=== PATIENT | female | born 1960 | race Caucasian/White ===

== ENCOUNTER 2017-06-29 07:09 | Day surgery (SDC) | payer OTHER ==
[~2017-06-29] VITALS: Ht 162.6 cm; Wt 80.4 kg
[~2017-06-29 07:09] MED LIST: AMIT25 PO; AMIT50 PO; AMOCLA875 PO; AZIT250 PO; Bentyl20 MG; DOXY100 PO; FAMO20 PO; HYDACE5 PO; HYDR1TAB94 PO; K-Dur 20 meq T20 MEQ PO; K-Dur20 MEQ PO; LORA1 PO; METO10 PO; METO5A PO; Norco 5-325 Ta1 EACH PO; OMEPRAZOLE MAGN20 MG PO; ONDA4ODT PO; OXYACE5T PO; Omeprazole20 M1 PO; POTA8 PO; POTCHL20ER PO; PROC10 PO; PSEU120ER PO; RXCLIN PO; Sudafed 12 Hou120 MG PO; TRAZ50 PO; Zofran Odt4 MG SL; Zofran Odt8 MG SL
[2017-09-22] MEDS ORDERED: PROM25 PO (13:10)
[2017-09-22] MEDS ORDERED: METR500 PO (13:10)
[2017-09-22] MEDS ORDERED: CIPR500 PO (13:11)
[2017-09-22] MEDS ORDERED: Omeprazole20 M1 PO (13:11)
[2017-09-22] MEDS ORDERED: TYLECOD3 PO (13:12)
[2017-09-22] MEDS ORDERED: BUDE6HFA INH (13:14)
[2017-09-22] MEDS ORDERED: SPIRIVA RESPIMAT4 G1 INH (13:14)
[2017-09-22] MEDS ORDERED: ONDA4 PO (13:15)
[2017-09-22] MEDS ORDERED: PROM25 PR (14:30)
[2017-09-22] MEDS ORDERED: HYDR1TAB94 PO (14:51)
[2018-03-02] MEDS ORDERED: AMIT75 PO (15:13)
[2018-03-02] MEDS ORDERED: Protonix40 MG PO (16:43)
[2018-03-02] MEDS ORDERED: CEPH500 PO (16:43)
[2018-03-02] MEDS ORDERED: MAALOX ADVANCE1 EACH PO (16:43)
== END 2017-06-29 09:06 | disposition home or self-care (01) ==
LOC: ORSCSDS 07:09
PROVIDERS: Internal Medicine Gastroenterology
PROC: 0DJD8ZZ Inspection of Lower Intestinal Tract, Via Natural or Artificial Opening Endoscopic (ICD-10-PCS; principal; 2017-06-29 08:30)
DX: K21.9 Gastro-esophageal reflux disease without esophagitis (principal); K57.30 Diverticulosis of large intestine without perforation or abscess without bleeding; K64.8 Other hemorrhoids; R10.9 Unspecified abdominal pain; R11.2 Nausea with vomiting, unspecified; Z86.010 Personal history of colon polyps; Z87.891 Personal history of nicotine dependence; Z79.899 Other long term (current) drug therapy
CPT/HCPCS: J0330; J1980; J2405; J7120

== ENCOUNTER → 2017-09-19 | Outpatient (CLI) | payer OTHER ==
[~2017-09-19] MED LIST changes: +BUDE6HFA INH; +CIPR500 PO; +METR500 PO; +ONDA4 PO; +PROM25 PO; +PROM25 PR; +SPIRIVA RESPIMAT4 G1 INH; +TYLECOD3 PO
[2017-09-19 15:42] LABS: BASOPHILS ABSOLUTE AUTO 0.02 K/mm3 (0.00-0.23); BASOPHILS PERCENT AUTO 0 % (0-2); EOSINOPHILS ABSOLUTE AUTO 0.02 K/mm3 (0.00-0.68); EOSINOPHILS PERCENT AUTO 0 % (0-6); Hematocrit 41.6 % (33.0-51.0); Hemoglobin 14.3 g/dL (11.5-16.0); IMMATURE GRAN ABSOLUTE AUTO 0.06 K/mm3 (0.00-0.10); IMMATURE GRAN PERCENT AUTO 0 % (0-1); LYMPHOCYTES ABSOLUTE AUTO 1.67 K/mm3 (0.84-5.20); LYMPHOCYTES PERCENT AUTO 10 % (21-46); MONOCYTES ABSOLUTE AUTO 0.71 K/mm3 (0.16-1.47); MONOCYTES PERCENT AUTO 4 % (4-13); Mean Corpuscular HGB 28.4 pg (26.0-34.0); Mean Corpuscular HGB Conc 34.4 g/dL (31.5-36.5); Mean Corpuscular Volume 83 fL (80-100); Mean Platelet Volume 8.8 fL (9.1-12.4); NEUTROPHILS ABSOLUTE AUTO 13.61 K/mm3 (1.96-9.15); NEUTROPHILS PERCENT AUTO 85 % (41-73); Platelet Count 363 K/mm3 (150-400); RDW Coefficient Variation 13.8 % (11.7-14.2); RDW Standard Deviation 40.9 fL (35.1-46.3); Red Blood Cell Count 5.03 M/mm3 (3.80-5.20); White Blood Cell Count 16.09 K/mm3 (4.00-11.30)
[2017-09-19 15:54] LABS: Albumin, Blood 4.4 g/dL (3.4-5.0); Albumin/Globulin Ratio 1.1 (0.8-1.8); Bilirubin, Total 0.4 mg/dL (0.1-1.0); Bun/Creatinine Ratio 7.8 (12.0-20.0); Calcium, Blood 9.8 mg/dL (8.5-10.1); Creatinine, Blood 1.53 mg/dL (0.40-1.00); Potassium, Blood 3.8 mmol/L (3.5-5.5); Total Protein, Blood 8.4 g/dL (6.4-8.2)
== END ==
LOC: LAB SHORT 15:38 → LAB EV 15:38
PROVIDERS: Physician Assistant Medical
DX: R10.11 Right upper quadrant pain (principal)
CPT/HCPCS: 80053; 83690; 85025

== ENCOUNTER 2018-08-13 14:20 | Observation (INO) | payer OTHER ==
[~2018-08-13] VITALS: Ht 162.6 cm; Wt 76.4 kg
[~2018-08-13 14:20] MED LIST changes: +AMIT75 PO; +CEPH500 PO; +MAALOX ADVANCE1 EACH PO; +Protonix40 MG PO
[2018-08-13 21:19] LABS: Source, Urine Voided
[2018-08-13 21:23] LABS: Appearance, Urine Clear (Clear); Bilirubin, Urine Neg (Neg); Blood, Urine 4+ (Neg); Color, Urine Yellow (P-Yellow); Glucose Qualitative, Urine Neg (Neg); Ketones, Urine 2+ (Neg); Leukocyte Esterase, Urine Neg (Neg); Nitrite, Urine Neg (Neg); Protein, Urine 1+ (Neg); Urobilinogen, Urine NORM (Normal); pH, Urine 6.5 (5.0-8.0)
[2018-08-13 21:45] LABS: Bacteria Few /hpf; Squamous Epithelial Cells Not Seen /hpf (Few); White Blood Cells, Urine Rare /hpf (0-5)
[2018-08-14 06:21] LABS: Hematocrit 36.6 % (33.0-51.0); Hemoglobin 12.2 g/dL (11.5-16.0); Mean Corpuscular HGB 28.8 pg (26.0-34.0); Mean Corpuscular HGB Conc 33.3 g/dL (31.5-36.5); Mean Platelet Volume 9.6 fL (9.1-12.4); Platelet Count 292 K/mm3 (150-400); RDW Coefficient Variation 13.9 % (11.7-14.2); RDW Standard Deviation 43.9 fL (35.1-46.3); Red Blood Cell Count 4.23 M/mm3 (3.80-5.20); White Blood Cell Count 12.99 K/mm3 (4.00-11.30)
[2018-08-14 06:22] LABS: Mean Corpuscular Volume 87 fL (80-100)
[2018-08-14 06:37] LABS: Bun/Creatinine Ratio 17.5 (12.0-20.0); Calcium, Blood 8.2 mg/dL (8.5-10.1); Creatinine, Blood 1.14 mg/dL (0.40-1.00); Potassium, Blood 3.5 mmol/L (3.5-5.5)
[2018-08-14 12:26] LABS: BASOPHILS ABSOLUTE AUTO 0.03 K/mm3 (0.00-0.23); BASOPHILS PERCENT AUTO 0 % (0-2); EOSINOPHILS ABSOLUTE AUTO 0.01 K/mm3 (0.00-0.68); EOSINOPHILS PERCENT AUTO 0 % (0-6); Hematocrit 35.5 % (33.0-51.0); Hemoglobin 11.7 g/dL (11.5-16.0); IMMATURE GRAN ABSOLUTE AUTO 0.04 K/mm3 (0.00-0.10); IMMATURE GRAN PERCENT AUTO 0 % (0-1); LYMPHOCYTES ABSOLUTE AUTO 2.34 K/mm3 (0.84-5.20); LYMPHOCYTES PERCENT AUTO 20 % (21-46); MONOCYTES ABSOLUTE AUTO 0.66 K/mm3 (0.16-1.47); MONOCYTES PERCENT AUTO 6 % (4-13); Mean Corpuscular HGB 29.5 pg (26.0-34.0); Mean Platelet Volume 9.5 fL (9.1-12.4); NEUTROPHILS ABSOLUTE AUTO 8.76 K/mm3 (1.96-9.15); NEUTROPHILS PERCENT AUTO 74 % (41-73); Platelet Count 246 K/mm3 (150-400); RDW Coefficient Variation 13.7 % (11.7-14.2); RDW Standard Deviation 45.2 fL (35.1-46.3); Red Blood Cell Count 3.96 M/mm3 (3.80-5.20); White Blood Cell Count 11.84 K/mm3 (4.00-11.30)
[2018-08-14 12:29] LABS: Mean Corpuscular Volume 90 fL (80-100)
[2018-08-14 12:44] LABS: Bun/Creatinine Ratio 17.4 (12.0-20.0); Calcium, Blood 8.1 mg/dL (8.5-10.1); Creatinine, Blood 1.09 mg/dL (0.40-1.00); Potassium, Blood 3.5 mmol/L (3.5-5.5)
--- NOTE | 2018-08-14 18:17 | NUR ---
SUMMARY PT HAS DONE WELL SINCE ADMISSION TO THE FLOOR. VSS, MINIMAL PAIN. PT IS INDEPENDENT IN ROOM, ON ROOM AIR. IN TO ASSESS PT PER CONSULT ORDERS FROM . TEGADERM DRSG WAS REMOVED BY . NEW TEGADERM PLACED. ROMEO REMAIN INTACT. BRUISING NOTED. WCTM AND REPORT TO NOC RN. CALL LIGHT IN REACH.
--- NOTE | 2018-08-14 21:45 | NUR ---
PT C/O PAIN 01/20. SEVERE PRODUCTIVE COUGH CONTINUES. MD CONTACTED AND ORDERS OBTAINED FOR DILAUDID AND TESSALON PEARLES, ADMINISTERED PER EMAR. ABD BINDER PLACED FOR SUPPORT AND PT INSTRUCTED TO SPLINT WITH PILLOW. HEATING PAD PLACED BETWEEN ABD BINDER AND PILLOW FOR ADDITIONAL COMFORT. SAFETY MEASURES IN PLACE. WILL CONTINUE TO MONITOR.
--- NOTE | 2018-08-15 06:33 | NUR ---
LYING IN LOW FOWLERS WITH EYES OPEN. PAIN HAS BEEN WELL MANAGED AFTER CHANGE. STATES ABD BINDER HAS REALLY MADE A DIFFERENCE FOR HER COMFORT LEVEL. COUGH WELL CONTROLLED WITH TESSALON PEARLES. PRE MRI QUESTIONARE COMPLETED AND FAXED BACK. DENIES FURTHER NEEDS AT THIS TIME. SAFETY MEASURES IN PLACE. WILL CONTINUE TO MONITOR.
[2018-08-15 07:41] LABS: Source, Urine Clean Catch
[2018-08-15 07:48] LABS: Bilirubin, Urine Neg (Neg); Blood, Urine 4+ (Neg); Glucose Qualitative, Urine Neg (Neg); Ketones, Urine 2+ (Neg); Leukocyte Esterase, Urine Neg (Neg); Nitrite, Urine Neg (Neg); Protein, Urine Neg (Neg); Urobilinogen, Urine NORM (Normal)
[2018-08-15 07:54] LABS: Appearance, Urine Clear (Clear); Color, Urine Yellow (P-Yellow)
[2018-08-15 08:00] LABS: Bacteria Few /hpf
[2018-08-15 08:01] LABS: Squamous Epithelial Cells Mod /hpf (Few); U Amphetamine Screen Not Detected; U Barbituate Screen Not Detected; U Benzodiazapine Screen Not Detected; U Buprenorphine Screen Not Detected; U Cannabinoids Screen DETECTED; U Cocaine Screen Not Detected; U Methadone Screen Not Detected; U Methamphetamine Screen Not Detected; U Opiates Screen DETECTED; U Oxycodone Screen Not Detected; U Phencyclidine Screen Not Detected; U Propoxyphene Screen Not Detected
[2018-08-15 09:18] LABS: BASOPHILS ABSOLUTE AUTO 0.04 K/mm3 (0.00-0.23); BASOPHILS PERCENT AUTO 0 % (0-2); EOSINOPHILS ABSOLUTE AUTO 0.03 K/mm3 (0.00-0.68); EOSINOPHILS PERCENT AUTO 0 % (0-6); Hematocrit 36.1 % (33.0-51.0); Hemoglobin 11.9 g/dL (11.5-16.0); IMMATURE GRAN ABSOLUTE AUTO 0.04 K/mm3 (0.00-0.10); IMMATURE GRAN PERCENT AUTO 0 % (0-1); LYMPHOCYTES ABSOLUTE AUTO 2.85 K/mm3 (0.84-5.20); LYMPHOCYTES PERCENT AUTO 28 % (21-46); MONOCYTES ABSOLUTE AUTO 0.68 K/mm3 (0.16-1.47); MONOCYTES PERCENT AUTO 7 % (4-13); Mean Corpuscular HGB 28.7 pg (26.0-34.0); Mean Corpuscular Volume 87 fL (80-100); Mean Platelet Volume 9.4 fL (9.1-12.4); NEUTROPHILS ABSOLUTE AUTO 6.65 K/mm3 (1.96-9.15); NEUTROPHILS PERCENT AUTO 65 % (41-73); Platelet Count 231 K/mm3 (150-400); RDW Coefficient Variation 13.4 % (11.7-14.2); RDW Standard Deviation 42.8 fL (35.1-46.3); Red Blood Cell Count 4.15 M/mm3 (3.80-5.20); White Blood Cell Count 10.29 K/mm3 (4.00-11.30)
[2018-08-15 09:37] LABS: Albumin, Blood 3.5 g/dL (3.4-5.0); Anion Gap 10 mmol/L (6-16); Blood Urea Nitrogen 11 mg/dL (8-24); Bun/Creatinine Ratio 11.8 (12.0-20.0); CO2, Blood 24 mmol/L (21-32); Calcium, Blood 8.4 mg/dL (8.5-10.1); Chloride, Blood 106 mmol/L (98-108); Creatinine, Blood 0.93 mg/dL (0.40-1.00); Glomerular Filtration Rate >60 (60-); Glucose, Blood 133 mg/dL (70-99); Phosphorus, Blood 1.2 mg/dL (2.5-4.9); Potassium, Blood 2.8 mmol/L (3.5-5.5); Sodium, Blood 140 mmol/L (136-145)
[2018-08-15 16:44] LABS: Albumin, Blood 3.6 g/dL (3.4-5.0); Anion Gap 13 mmol/L (6-16); Blood Urea Nitrogen 8 mg/dL (8-24); Bun/Creatinine Ratio 8.3 (12.0-20.0); CO2, Blood 22 mmol/L (21-32); Calcium, Blood 8.6 mg/dL (8.5-10.1); Chloride, Blood 108 mmol/L (98-108); Creatinine, Blood 0.96 mg/dL (0.40-1.00); Glomerular Filtration Rate >60 (60-); Glucose, Blood 122 mg/dL (70-99); Phosphorus, Blood 1.6 mg/dL (2.5-4.9); Potassium, Blood 3.3 mmol/L (3.5-5.5); Sodium, Blood 143 mmol/L (136-145)
--- NOTE | 2018-08-16 05:39 | NUR ---
LYING IN LOW FOWLERS WITH EYES CLOSED. VOICED DISPLEASURE WITH PAIN MEDS BEING D/C'D. NURSING REITERATED NEED TO NOT CONTINUE WITH PAIN MEDS DUE TO SIDE EFFECTS, VOICES UNDERSTANDING. STATES ABD BINDER IS CONTINUEING TO ASSIST WITH HER COMFORT LEVEL. COUGH WELL CONTROLLED WITH TESSALON PEARLES. DENIES FURTHER NEEDS AT THIS TIME. SAFETY MEASURES IN PLACE. WILL CONTINUE TO MONITOR.
[2018-08-16 05:52] LABS: Albumin, Blood 3.5 g/dL (3.4-5.0); Anion Gap 9 mmol/L (6-16); Blood Urea Nitrogen 7 mg/dL (8-24); Bun/Creatinine Ratio 6.9 (12.0-20.0); CO2, Blood 24 mmol/L (21-32); Calcium, Blood 8.6 mg/dL (8.5-10.1); Chloride, Blood 109 mmol/L (98-108); Creatinine, Blood 1.02 mg/dL (0.40-1.00); Glomerular Filtration Rate 59 (60-); Glucose, Blood 92 mg/dL (70-99); Phosphorus, Blood 3.3 mg/dL (2.5-4.9); Potassium, Blood 3.8 mmol/L (3.5-5.5); Sodium, Blood 142 mmol/L (136-145)
--- NOTE | 2018-08-16 09:01 | NUR ---
DR DUVALL RECENTLY TO ROOM, REPORTS PT REPORTS HAVING INCREASED PAIN AFTER EATING SMALL AMT.
--- NOTE | 2018-08-16 12:25 | NUR ---
PT REPORTS ABD PAIN AND CRAMPING. REPORTS BEING MED FOR PAIN PREVIOUSLY. DR NOTIFIED SEE ORDERS.
--- NOTE | 2018-08-16 12:30 | NUR ---
PT APPEARS TO BE RESTING QUIETLY WITH EYES CLOSED. PT NOT DISTURBED AT THIS TIME.
--- NOTE | 2018-08-16 15:38 | NUR ---
HEALTH PLAN MANAGER RECENTLY NOTIFIED OF CONSULT.
--- NOTE | 2018-08-16 15:55 | NUR ---
PAPER BAGS SEWING MACHINE OPERATOR HERE TO SEE PT. PT BEEN MED FOR PAIN AND GAS.
--- NOTE | 2018-08-17 08:48 | NUR ---
SHIFT SUMMARY PT A&O X4 T/O SHIFT. NO ACUTE CHANGES. LS CLEAR; PT DENIES SOB AND CP. PT C/O NAUSEA AND ABD PAIN; PAIN MANGED PER EMAR. NON-PHARM INTERVENTIONS FOR NAUSEA MANAGEMENT. BT X4; ABD SOFT. PT INDEPENDENT IN ROOM AND PERSONAL HYGIENE. SHOWER X1. NO BM DURING SHIFT; PT AWARE OF NEED FOR SAMPLE. CALL LIGHT IN REACH; PT DEMONSTRATES USE. REPORT GIVEN TO DAY SHIFT RN.
--- NOTE | 2018-08-17 10:19 | NUR ---
DR CRANDALL HERE TO SEE PT.
[2018-08-17] MEDS ORDERED: Phospha 250 Ne250 MG PO (14:17)
[2018-08-17] MEDS ORDERED: SIME80CH PO (14:18)
[2018-08-17] MEDS ORDERED: ROBITUSSIN COU237 ML PO (14:19)
[2018-08-17] MEDS ORDERED: ONDA4ODT MM (14:20)
[2018-08-17] MEDS ORDERED: TRAM50 PO (14:21)
--- NOTE | 2018-08-17 14:30 | NUR ---
DISCHARGE: PT TOLERATING SMALL AMT OF FOOD. REPORTS PAIN TOLERABLE WITH PO PAIN MEDICATION. REPORTS NAUSEA BETTER. PT/FAMILY REPORTS UNDERSTANDING OF DISCHARGE INSTRUCTIONS. MEDS FAXED TO PHARMACY OF PT'S CHOICE, SCRIPT SENT WITH PT/FAMILY.
== END 2018-08-17 14:38 | disposition home or self-care (01) ==
LOC: ER 14:20 → SURS 14:21 → ERHOLD 14:21 → SURS 14:22 → ERHOLD 19:16 → ER 19:16 → SURS 19:16 → ERHOLD 08-14 10:39 → SURS 08-17 14:38
PROVIDERS: Emergency Medicine; Family Medicine; Nurse Practitioner Acute Care; ADMIT Internal Medicine
DX: N17.9 Acute kidney failure, unspecified (principal); R19.7 Diarrhea, unspecified; R10.9 Unspecified abdominal pain; N18.3 Chronic kidney disease, stage 3 (moderate); M62.82 Rhabdomyolysis; K21.9 Gastro-esophageal reflux disease without esophagitis; E78.5 Hyperlipidemia, unspecified; F41.1 Generalized anxiety disorder; D72.829 Elevated white blood cell count, unspecified; E87.6 Hypokalemia; E83.39 Other disorders of phosphorus metabolism; F43.9 Reaction to severe stress, unspecified; K57.30 Diverticulosis of large intestine without perforation or abscess without bleeding; K64.9 Unspecified hemorrhoids; D18.09 Hemangioma of other sites; R73.03 Prediabetes; F32.9 Major depressive disorder, single episode, unspecified; G47.00 Insomnia, unspecified; D50.9 Iron deficiency anemia, unspecified; G25.81 Restless legs syndrome; Z90.49 Acquired absence of other specified parts of digestive tract; Z98.51 Tubal ligation status; Z88.2 Allergy status to sulfonamides; Z88.8 Allergy status to other drugs, medicaments and biological substances; Z79.899 Other long term (current) drug therapy; Z86.010 Personal history of colon polyps
CPT/HCPCS: 36415; 70553; 71046; 74177; 80048; 80069; 81001; 82550; 83605; 83735; 85025; 85027; 87040; 93005; 93010; 94640; 94760; 96361; 96374; 96375; 96376; 99285-25; A9577; G0378; J1170; J1650; J2405; J2550; J2765; J3010; J3480; J7030; J7040; J7120; Q9967

== ENCOUNTER 2019-02-04 12:01 | Emergency (ER) | payer OTHER ==
[~2019-02-04] VITALS: Ht 162.6 cm; Wt 74.4 kg
[~2019-02-04 12:01] MED LIST changes: +ONDA4ODT MM; +Phospha 250 Ne250 MG PO; +ROBITUSSIN COU237 ML PO; +SIME80CH PO; +TRAM50 PO
[2019-02-04] MEDS ORDERED: MONT10T PO (12:21)
[2019-02-04] MEDS ORDERED: HYDPAM50 PO (12:21)
[2019-02-04] MEDS ORDERED: PRAZ1 PO (12:22)
[2019-02-04] MEDS ORDERED: PROAIR RESPICL90 MCG IH (12:22)
[2019-02-04] MEDS ORDERED: OLAN5A MM (12:23)
[2019-02-04] MEDS ORDERED: TRAM50 (12:23)
[2019-02-04] MEDS ORDERED: PROM25 PO (15:02)
[2019-02-04] MEDS ORDERED: Norco 5-325 Ta1 EACH PO (15:02)
== END 2019-02-04 15:16 | disposition home or self-care (01) ==
LOC: ER 12:01
DX: R10.33 Periumbilical pain (principal); Z88.5 Allergy status to narcotic agent; Z88.8 Allergy status to other drugs, medicaments and biological substances; Z79.899 Other long term (current) drug therapy; Z79.891 Long term (current) use of opiate analgesic; J45.909 Unspecified asthma, uncomplicated; I12.9 Hypertensive chronic kidney disease with stage 1 through stage 4 chronic kidney disease, or unspecified chronic kidney disease; N18.2 Chronic kidney disease, stage 2 (mild); F41.9 Anxiety disorder, unspecified
CPT/HCPCS: 74176; 93005; 93010; 96361; 96374; 96375; 99284-25; J1170; J2405; J7120

== ENCOUNTER 2019-06-01 09:52 | Emergency (ER) | payer OTHER ==
[~2019-06-01] VITALS: Ht 162.6 cm; Wt 72.6 kg
[~2019-06-01 09:52] MED LIST changes: +HYDPAM50 PO; +MONT10T PO; +OLAN5A MM; +PRAZ1 PO; +PROAIR RESPICL90 MCG IH; +TRAM50
[2019-06-01] MEDS ORDERED: BENZ100A PO (10:02)
[2019-06-01] MEDS ORDERED: Ipratropium Bro30 ML NS (10:03)
[2019-06-01] MEDS ORDERED: MIRT15 PO (10:03)
[2019-06-01] MEDS ORDERED: PANT40 PO (10:03)
[2019-06-01] MEDS ORDERED: PROAIR DIGIHAL90 MCG (10:04)
[2019-06-01] MEDS ORDERED: TRAZ50 PO (10:04)
[2019-06-01] MEDS ORDERED: MIRALAX17 GM PO (10:04)
[2019-06-01 10:16] LABS: Source, Urine Clean Catch
[2019-06-01 10:19] LABS: Bilirubin, Urine Neg (Neg); Blood, Urine 5+ (Neg); Glucose Qualitative, Urine Neg (Neg); Ketones, Urine 1+ (Neg); Leukocyte Esterase, Urine 1+ (Neg); Nitrite, Urine Neg (Neg); Protein, Urine 3+ (Neg); Urobilinogen, Urine NORM (Normal)
[2019-06-01 10:25] LABS: BASOPHILS ABSOLUTE AUTO 0.04 K/mm3 (0.00-0.23); BASOPHILS PERCENT AUTO 0 % (0-2); EOSINOPHILS ABSOLUTE AUTO 0.04 K/mm3 (0.00-0.68); EOSINOPHILS PERCENT AUTO 0 % (0-6); Hematocrit 46.4 % (33.0-51.0); Hemoglobin 15.7 g/dL (11.5-16.0); IMMATURE GRAN ABSOLUTE AUTO 0.07 K/mm3 (0.00-0.10); IMMATURE GRAN PERCENT AUTO 1 % (0-1); LYMPHOCYTES ABSOLUTE AUTO 3.37 K/mm3 (0.84-5.20); LYMPHOCYTES PERCENT AUTO 22 % (21-46); MONOCYTES PERCENT AUTO 8 % (4-13); Mean Corpuscular HGB 28.4 pg (26.0-34.0); Mean Corpuscular HGB Conc 33.8 g/dL (31.5-36.5); Mean Corpuscular Volume 84 fL (80-100); Mean Platelet Volume 9.2 fL (9.1-12.4); NEUTROPHILS ABSOLUTE AUTO 10.31 K/mm3 (1.96-9.15); NEUTROPHILS PERCENT AUTO 69 % (41-73); Platelet Count 439 K/mm3 (150-400); RDW Coefficient Variation 12.2 % (11.7-14.2); RDW Standard Deviation 37.2 fL (35.1-46.3); Red Blood Cell Count 5.52 M/mm3 (3.80-5.20); White Blood Cell Count 15.03 K/mm3 (4.00-11.30)
[2019-06-01 10:29] LABS: Appearance, Urine Hazy (Clear); Color, Urine Yellow (P-Yellow)
[2019-06-01 10:33] LABS: Squamous Epithelial Cells Few /hpf (Few)
[2019-06-01 10:34] LABS: Bacteria Many /hpf
[2019-06-01 10:47] LABS: Albumin, Blood 4.5 g/dL (3.4-5.0); Albumin/Globulin Ratio 1.1 (0.8-1.8); Bilirubin, Total 0.6 mg/dL (0.1-1.0); Bun/Creatinine Ratio 18.8 (12.0-20.0); Calcium, Blood 9.6 mg/dL (8.5-10.1); Creatinine, Blood 1.76 mg/dL (0.40-1.00); Globulin, Blood 4.2 g/dL (2.2-4.0); Potassium, Blood 2.9 mmol/L (3.5-5.5); Total Protein, Blood 8.7 g/dL (6.4-8.2)
[2019-06-01] MEDS ORDERED: PROM25 PO (12:43)
== END 2019-06-01 13:02 | disposition home or self-care (01) ==
LOC: ER 09:52
PROVIDERS: Emergency Medicine
DX: R10.30 Lower abdominal pain, unspecified (principal); R19.7 Diarrhea, unspecified; E87.6 Hypokalemia; Z88.5 Allergy status to narcotic agent; Z88.8 Allergy status to other drugs, medicaments and biological substances; Z79.899 Other long term (current) drug therapy; Z79.51 Long term (current) use of inhaled steroids
CPT/HCPCS: 74022; 80053; 81001; 83690; 85025; 87086; 93005; 93010; 99284-25; J7030

== ENCOUNTER 2019-11-28 12:42 | Emergency (ER) | payer OTHER ==
[~2019-11-28] VITALS: Ht 162.6 cm; Wt 72.6 kg
[~2019-11-28 12:42] MED LIST changes: +BENZ100A PO; +IPRATROPIUM BRO15 ML; +MIRALAX17 GM PO; +MIRT15 PO; +PANT40 PO; +PROAIR DIGIHAL90 MCG
[2019-11-28 13:29] LABS: BASOPHILS ABSOLUTE AUTO 0.04 K/mm3 (0.00-0.23); BASOPHILS PERCENT AUTO 0 % (0-2); EOSINOPHILS ABSOLUTE AUTO 0.03 K/mm3 (0.00-0.68); EOSINOPHILS PERCENT AUTO 0 % (0-6); Hemoglobin 12.8 g/dL (11.5-16.0); IMMATURE GRAN ABSOLUTE AUTO 0.07 K/mm3 (0.00-0.10); IMMATURE GRAN PERCENT AUTO 1 % (0-1); LYMPHOCYTES ABSOLUTE AUTO 2.79 K/mm3 (0.84-5.20); LYMPHOCYTES PERCENT AUTO 20 % (21-46); MONOCYTES ABSOLUTE AUTO 1.11 K/mm3 (0.16-1.47); MONOCYTES PERCENT AUTO 8 % (4-13); Mean Corpuscular HGB Conc 32.8 g/dL (31.5-36.5); Mean Corpuscular Volume 88 fL (80-100); Mean Platelet Volume 9.3 fL (9.1-12.4); NEUTROPHILS ABSOLUTE AUTO 10.13 K/mm3 (1.96-9.15); NEUTROPHILS PERCENT AUTO 72 % (41-73); Platelet Count 325 K/mm3 (150-400); RDW Coefficient Variation 13.7 % (11.7-14.2); RDW Standard Deviation 44.7 fL (35.1-46.3); Red Blood Cell Count 4.42 M/mm3 (3.80-5.20); White Blood Cell Count 14.17 K/mm3 (4.00-11.30)
[2019-11-28 13:56] LABS: Albumin, Blood 4.2 g/dL (3.4-5.0); Bilirubin, Total 0.5 mg/dL (0.1-1.0); Bun/Creatinine Ratio 12.4 (12.0-20.0); Calcium, Blood 9.3 mg/dL (8.5-10.1); Creatinine, Blood 1.05 mg/dL (0.40-1.00); Potassium, Blood 3.2 mmol/L (3.5-5.5); Total Protein, Blood 8.2 g/dL (6.4-8.2)
[2019-11-28] MEDS ORDERED: ROPI1 PO (18:35)
[2019-11-28] MEDS ORDERED: QUETIAPINE FUMA50 MG PO (18:35)
[2019-11-28] MEDS ORDERED: TRAZ100 PO (18:35)
[2019-11-28] MEDS ORDERED: ONDA4ODT MM (20:04)
== END 2019-11-28 20:18 | disposition home or self-care (01) ==
LOC: ER 12:42
PROVIDERS: Physician Assistant
DX: R10.31 Right lower quadrant pain (principal); Z88.5 Allergy status to narcotic agent; Z88.8 Allergy status to other drugs, medicaments and biological substances; Z79.899 Other long term (current) drug therapy
CPT/HCPCS: 36415; 74177; 80053; 83690; 85025; 96361-59; 96374-59; 96375-59; 99284-25; J1885; J2405; J7030; Q9967

== ENCOUNTER 2020-10-26 14:45 | Emergency (ER) | payer OTHER ==
[~2020-10-26] VITALS: Ht 162.6 cm; Wt 74.8 kg
[~2020-10-26 14:45] MED LIST changes: +AMITRIPTYLINE100 MG PO; +BUPROPION XL150 M1 PO; +PANT20 PO; +POTA10T PO; +QUETIAPINE FUMA50 MG PO; +ROPI1 PO; +ROPINIROLE HCL0.5 MG PO; +TRAZ100 PO
[2020-10-26] MEDS ORDERED: ALBU2.5V5 INH (15:46)
[2020-10-26] MEDS ORDERED: AMIT75 PO (15:47)
[2020-10-26] MEDS ORDERED: BENZ100A PO (15:47)
[2020-10-26] MEDS ORDERED: PANT40 PO (15:49)
[2020-10-26 15:50] LABS: Albumin, Blood 3.9 g/dL (3.4-5.0); Albumin/Globulin Ratio 1.1 (0.8-1.8); Bilirubin, Total 0.3 mg/dL (0.1-1.0); Bun/Creatinine Ratio 9.3 (12.0-20.0); Calcium, Blood 9.1 mg/dL (8.5-10.1); Creatinine, Blood 1.08 mg/dL (0.40-1.00); Globulin, Blood 3.7 g/dL (2.2-4.0); Potassium, Blood 4.3 mmol/L (3.5-5.5); Total Protein, Blood 7.6 g/dL (6.4-8.2)
[2020-10-26] MEDS ORDERED: ROPI.25 PO (15:51)
[2020-10-26 16:21] LABS: BASOPHILS ABSOLUTE AUTO 0.01 K/mm3 (0.00-0.23); BASOPHILS PERCENT AUTO 0 % (0-2); EOSINOPHILS ABSOLUTE AUTO 0.01 K/mm3 (0.00-0.68); EOSINOPHILS PERCENT AUTO 0 % (0-6); Hematocrit 34.6 % (33.0-51.0); Hemoglobin 11.6 g/dL (11.5-16.0); IMMATURE GRAN ABSOLUTE AUTO 0.03 K/mm3 (0.00-0.10); IMMATURE GRAN PERCENT AUTO 0 % (0-1); LYMPHOCYTES ABSOLUTE AUTO 1.06 K/mm3 (0.84-5.20); LYMPHOCYTES PERCENT AUTO 12 % (21-46); MONOCYTES ABSOLUTE AUTO 0.24 K/mm3 (0.16-1.47); MONOCYTES PERCENT AUTO 3 % (4-13); Mean Corpuscular HGB 28.9 pg (26.0-34.0); Mean Corpuscular HGB Conc 33.5 g/dL (31.5-36.5); Mean Corpuscular Volume 86 fL (80-100); NEUTROPHILS ABSOLUTE AUTO 7.74 K/mm3 (1.96-9.15); NEUTROPHILS PERCENT AUTO 85 % (41-73); Platelet Count 306 K/mm3 (150-400); RDW Coefficient Variation 12.8 % (11.7-14.2); RDW Standard Deviation 40.5 fL (35.1-46.3); Red Blood Cell Count 4.01 M/mm3 (3.80-5.20); White Blood Cell Count 9.09 K/mm3 (4.00-11.30)
[2020-10-26] MEDS ORDERED: Reglan10 MG PO (18:14)
== END 2020-10-26 18:05 | disposition home or self-care (01) ==
LOC: ER 14:45
PROVIDERS: Physician Assistant
DX: R10.9 Unspecified abdominal pain (principal); R11.2 Nausea with vomiting, unspecified; I10 Essential (primary) hypertension; K21.9 Gastro-esophageal reflux disease without esophagitis; Z88.5 Allergy status to narcotic agent; Z88.8 Allergy status to other drugs, medicaments and biological substances; Z79.899 Other long term (current) drug therapy
CPT/HCPCS: 36415; 80053; 83690; 85025; 93005; 93010; 96374; 96375; 99284-25; J1170; J2405; J7030

== ENCOUNTER 2021-11-21 10:57 | Observation (INO) | payer OTHER ==
[~2021-11-21] VITALS: Ht 162.6 cm; Wt 69.0 kg
[~2021-11-21 10:57] MED LIST changes: +ALBU2.5V5 INH; +AMITRIPTYLINE100 M2 PO; +ASPI81CH PO; +AZELASTINE137 MCG/01; +Acerola C500 MG PO; +FEROSUL325 M1 PO; +Flonase 0.05% N16 GM; +HYDHCL25 PO; +LOSA25 PO; +LOSARTAN POTASS25 M2 PO; +MULTIPLE VITAM1 EACH PO; +QUETIAPINE FUMA PO; +ROPI.25 PO; +Reglan10 MG PO; +THERA-D2000 UNIT PO
[2021-11-21 11:27] LABS: BASOPHILS ABSOLUTE AUTO 0.03 K/mm3 (0.00-0.23); BASOPHILS PERCENT AUTO 0 % (0-2); EOSINOPHILS PERCENT AUTO 0 % (0-6); Hematocrit 48.3 % (33.0-51.0); Hemoglobin 16.4 g/dL (11.5-16.0); IMMATURE GRAN ABSOLUTE AUTO 0.07 K/mm3 (0.00-0.10); IMMATURE GRAN PERCENT AUTO 0 % (0-1); LYMPHOCYTES ABSOLUTE AUTO 2.57 K/mm3 (0.84-5.20); LYMPHOCYTES PERCENT AUTO 15 % (21-46); MONOCYTES ABSOLUTE AUTO 0.82 K/mm3 (0.16-1.47); MONOCYTES PERCENT AUTO 5 % (4-13); Mean Corpuscular HGB 28.5 pg (26.0-34.0); Mean Corpuscular Volume 84 fL (80-100); Mean Platelet Volume 9.2 fL (9.1-12.4); NEUTROPHILS ABSOLUTE AUTO 13.21 K/mm3 (1.96-9.15); NEUTROPHILS PERCENT AUTO 79 % (41-73); Platelet Count 471 K/mm3 (150-400); RDW Coefficient Variation 13.2 % (11.7-14.2); RDW Standard Deviation 40.6 fL (35.1-46.3); Red Blood Cell Count 5.75 M/mm3 (3.80-5.20)
[2021-11-21 11:46] LABS: Albumin, Blood 5.3 g/dL (3.4-5.0); Albumin/Globulin Ratio 1.1 (0.8-1.8); Bilirubin, Total 0.6 mg/dL (0.1-1.0); Bun/Creatinine Ratio 11.4 (12.0-20.0); Calcium, Blood 11.2 mg/dL (8.5-10.1); Creatinine, Blood 3.24 mg/dL (0.40-1.00); Globulin, Blood 4.9 g/dL (2.2-4.0); Magnesium, Blood 2.5 mg/dL (1.6-2.4); Potassium, Blood 3.5 mmol/L (3.5-5.5); Total Protein, Blood 10.2 g/dL (6.4-8.2)
[2021-11-21 17:48] LABS: Source, Urine Clean Catch
[2021-11-21 17:52] LABS: Appearance, Urine Hazy (Clear); Bilirubin, Urine Neg (Neg); Blood, Urine 4+ (Neg); Color, Urine Yellow (P-Yellow); Glucose Qualitative, Urine Neg (Neg); Ketones, Urine 1+ (Neg); Leukocyte Esterase, Urine Neg (Neg); Nitrite, Urine Neg (Neg); Protein, Urine 2+ (Neg); Urobilinogen, Urine NORM (Normal)
[2021-11-21 18:10] LABS: Granular Casts 25-50 /lpf (0); Hyaline Casts 25-50 /lpf (0-2); Mucus Mod (0-Heavy)
[2021-11-21 18:13] LABS: Amorphous Mod (0-Heavy); Bacteria Mod /hpf; Squamous Epithelial Cells Few /hpf (Few); White Blood Cells, Urine 0-2 /hpf (0-5)
[2021-11-21 18:14] LABS: Calcium Oxalate Crystals Few /hpf
--- NOTE | 2021-11-21 19:08 | NUR ---
SHIFT SUMMARY PATIENT ADMITTED FROM ER FOR MICHAEL. RECEIVED REPORT FROM BLOOD BANK ASSISTANT. PATIENT RECEIVED AT CHANGE OF SHIFT. PATIENT AMBULATED TO BED. REPORT GIVEN TO ONCOMING RN.
[2021-11-22 05:14] LABS: BASOPHILS ABSOLUTE AUTO 0.06 K/mm3 (0.00-0.23); BASOPHILS PERCENT AUTO 0 % (0-2); EOSINOPHILS ABSOLUTE AUTO 0.02 K/mm3 (0.00-0.68); EOSINOPHILS PERCENT AUTO 0 % (0-6); Hematocrit 37.1 % (33.0-51.0); Hemoglobin 12.3 g/dL (11.5-16.0); IMMATURE GRAN ABSOLUTE AUTO 0.08 K/mm3 (0.00-0.10); IMMATURE GRAN PERCENT AUTO 1 % (0-1); LYMPHOCYTES ABSOLUTE AUTO 3.95 K/mm3 (0.84-5.20); LYMPHOCYTES PERCENT AUTO 27 % (21-46); MONOCYTES ABSOLUTE AUTO 1.31 K/mm3 (0.16-1.47); MONOCYTES PERCENT AUTO 9 % (4-13); Mean Corpuscular HGB 28.1 pg (26.0-34.0); Mean Corpuscular HGB Conc 33.2 g/dL (31.5-36.5); Mean Corpuscular Volume 85 fL (80-100); Mean Platelet Volume 9.3 fL (9.1-12.4); NEUTROPHILS ABSOLUTE AUTO 9.43 K/mm3 (1.96-9.15); NEUTROPHILS PERCENT AUTO 64 % (41-73); Platelet Count 319 K/mm3 (150-400); RDW Coefficient Variation 13.2 % (11.7-14.2); RDW Standard Deviation 41.2 fL (35.1-46.3); Red Blood Cell Count 4.37 M/mm3 (3.80-5.20); White Blood Cell Count 14.85 K/mm3 (4.00-11.30)
[2021-11-22 05:41] LABS: Magnesium, Blood 2.6 mg/dL (1.6-2.4)
[2021-11-22 05:42] LABS: Albumin, Blood 3.4 g/dL (3.4-5.0); Bilirubin, Total 0.6 mg/dL (0.1-1.0); Bun/Creatinine Ratio 19.7 (12.0-20.0); Creatinine, Blood 1.57 mg/dL (0.40-1.00); Globulin, Blood 3.4 g/dL (2.2-4.0); Potassium, Blood 3.6 mmol/L (3.5-5.5)
[2021-11-22 05:43] LABS: Calcium, Blood 8.9 mg/dL (8.5-10.1); Total Protein, Blood 6.8 g/dL (6.4-8.2)
--- NOTE | 2021-11-22 05:43 | NUR ---
TEACHER VOCAL SUMMARY ADMITTED FOR ACUTE KIDNEY INJURY. PT IS FULL CODE. PLAN FOR CONTINUED IV ABX AND PAIN CONTROL. SHE REPORTS MID ABDOMINAL PAIN THAT IS MANAGED WITH .5 MG IV DILAUDID - ADMINISTERED ONCE THIS SHIFT. I BELIEVE THE VOMITING IS CAUSED BY HER CHRONIC COUGH LEADING TO GAGGING. MEDICATED WITH REGLAN AND PT SLEPT THROUGHOUT THE NIGHT. NS RUNNING AT 100 ML/HR TO PROMOTE URINE OUTPUT. PT IS A SBA DUE TO MEDICATIONS, STEADY GAIT. SLIGHT IMPROVEMENT IN URINE OUTPUT THIS SHIFT.
--- NOTE | 2021-11-22 18:57 | NUR ---
SHIFT SUMMARY PATIENT A&OX4. AMBULATED IN ROOM INDEPENDENTLY. BOWEL REST NPO WITH ICE CHIPS TOLERATING WELL ONLY REQUESTING NAUSEA MEDICATIONS ONCE THIS SHIFT. RECEIVING IV FLUIDS. C/O COUGH AND REQUESTED USUAL HOME MED FOR SYMPTOM. NO SIGNIFICANT EVENTS. WILL CONTINUE TO MONITOR.
[2021-11-23 04:40] LABS: BASOPHILS ABSOLUTE AUTO 0.06 K/mm3 (0.00-0.23); BASOPHILS PERCENT AUTO 1 % (0-2); EOSINOPHILS ABSOLUTE AUTO 0.05 K/mm3 (0.00-0.68); EOSINOPHILS PERCENT AUTO 1 % (0-6); Hematocrit 32.5 % (33.0-51.0); IMMATURE GRAN ABSOLUTE AUTO 0.04 K/mm3 (0.00-0.10); IMMATURE GRAN PERCENT AUTO 0 % (0-1); LYMPHOCYTES ABSOLUTE AUTO 3.39 K/mm3 (0.84-5.20); LYMPHOCYTES PERCENT AUTO 37 % (21-46); MONOCYTES ABSOLUTE AUTO 0.71 K/mm3 (0.16-1.47); MONOCYTES PERCENT AUTO 8 % (4-13); Mean Corpuscular HGB 29.3 pg (26.0-34.0); Mean Corpuscular HGB Conc 33.8 g/dL (31.5-36.5); Mean Corpuscular Volume 86 fL (80-100); Mean Platelet Volume 9.3 fL (9.1-12.4); NEUTROPHILS PERCENT AUTO 54 % (41-73); Platelet Count 253 K/mm3 (150-400); RDW Coefficient Variation 13.3 % (11.7-14.2); Red Blood Cell Count 3.76 M/mm3 (3.80-5.20); White Blood Cell Count 9.25 K/mm3 (4.00-11.30)
[2021-11-23 05:02] LABS: Albumin, Blood 2.9 g/dL (3.4-5.0); Bilirubin, Total 0.6 mg/dL (0.1-1.0); Bun/Creatinine Ratio 18.5 (12.0-20.0); Calcium, Blood 8.3 mg/dL (8.5-10.1); Creatinine, Blood 1.08 mg/dL (0.40-1.00); Globulin, Blood 2.8 g/dL (2.2-4.0); Potassium, Blood 3.2 mmol/L (3.5-5.5); Total Protein, Blood 5.7 g/dL (6.4-8.2)
--- NOTE | 2021-11-23 05:35 | NUR ---
SHIFT SUMMARY: PT IS A/OX4. SHE DID WELL BEING INDEPENDENT IN THE ROOM AND USED THE CALL LIGHT FOR NEEDS. SHE DID USE 2L OF O2 WHILE SLEEPING. SHE DID NOT SEEM TOO DISTENTED, BOWEL TONES WERE HYPERACTIVE, AND SHE IS PASSING GAS AND HAD A SMALL BM. SHE DID HAVE SOME DISCOMFORT/PAIN IN HER ABDOMEN AND WAS MEDICATED VIA EMAR. CALL LIGHT IS WITHIN REACH AND WE'LL CONTINUE TO MONITOR.
[2021-11-23] MEDS ORDERED: ESCI5 PO (15:35)
--- NOTE | 2021-11-23 16:13 | NUR ---
PATIENT D/C'D TO [facility] WITH . DC INSTRUCTIONS AND EDUCATION DISCUSSED WITH PATIENT AND COPY PROVIDED. NO NEW RX MEDICATIONS. F/U MADE FOR 11/27 AT 10:00 WITH [facility]. PATIENT DENIES ANY FURTHER QUESTIONS OR CONCERNS.
== END 2021-11-23 16:04 | disposition home or self-care (01) ==
LOC: ER 10:57 → MEDS 10:58
PROVIDERS: Emergency Medicine; Physician Assistant; ADMIT Internal Medicine
DX: N17.9 Acute kidney failure, unspecified (principal); R11.10 Vomiting, unspecified; K21.9 Gastro-esophageal reflux disease without esophagitis; N18.30 Chronic kidney disease, stage 3 unspecified; E78.5 Hyperlipidemia, unspecified; F41.1 Generalized anxiety disorder; I12.9 Hypertensive chronic kidney disease with stage 1 through stage 4 chronic kidney disease, or unspecified chronic kidney disease; J32.9 Chronic sinusitis, unspecified; F32.A Depression, unspecified; D18.09 Hemangioma of other sites; Z79.82 Long term (current) use of aspirin; Z79.899 Other long term (current) drug therapy; Z90.49 Acquired absence of other specified parts of digestive tract; Z88.5 Allergy status to narcotic agent; Z88.8 Allergy status to other drugs, medicaments and biological substances; Z80.0 Family history of malignant neoplasm of digestive organs; Z86.73 Personal history of transient ischemic attack (TIA), and cerebral infarction without residual deficits
CPT/HCPCS: 36415; 51798; 74176; 80053; 81001; 83605; 83690; 83735; 85025; 87086; 94760; 96361; 96372; 96374; 96375; 96376; 99285-25; A9270; C9113; G0378; J0696; J1170; J1650; J2405; J2765; J3010; J7030

== ENCOUNTER → 2022-04-09 | Outpatient (CLI) | payer OTHER ==
[~2022-04-09] MED LIST changes: +ESCI5 PO; +FLUT1DIS8 INH; +PROBIOTIC1 EA13 PO; +SIMETHICONE125 MG PO; +SYMBICORT 16010.2 GM INH; +Zithromax250 MG PO
== END | disposition home or self-care (01) ==
LOC: LAB 13:12 → LAB SHORT 13:12
DX: J45.991 Cough variant asthma (principal); G47.36 Sleep related hypoventilation in conditions classified elsewhere
CPT/HCPCS: 87070; 87205

== ENCOUNTER 2022-04-19 10:37 | Observation (INO) | payer OTHER ==
[~2022-04-19] VITALS: Ht 162.6 cm; Wt 129.9 kg
[~2022-04-19 10:37] MED LIST changes: -ESCI5 PO; +ESCITALOPRAM OXA5 MG PO; -FLUT1DIS8 INH; -PROBIOTIC1 EA13 PO; -SIMETHICONE125 MG PO; -SYMBICORT 16010.2 GM INH
[2022-04-19 11:10] LABS: BASOPHILS ABSOLUTE AUTO 0.05 K/mm3 (0.00-0.23); BASOPHILS PERCENT AUTO 0 % (0-2); EOSINOPHILS ABSOLUTE AUTO 0.01 K/mm3 (0.00-0.68); EOSINOPHILS PERCENT AUTO 0 % (0-6); Hematocrit 45.8 % (33.0-51.0); Hemoglobin 15.8 g/dL (11.5-16.0); IMMATURE GRAN ABSOLUTE AUTO 0.09 K/mm3 (0.00-0.10); IMMATURE GRAN PERCENT AUTO 1 % (0-1); LYMPHOCYTES ABSOLUTE AUTO 3.17 K/mm3 (0.84-5.20); LYMPHOCYTES PERCENT AUTO 18 % (21-46); MONOCYTES ABSOLUTE AUTO 1.12 K/mm3 (0.16-1.47); MONOCYTES PERCENT AUTO 6 % (4-13); Mean Corpuscular HGB 28.6 pg (26.0-34.0); Mean Corpuscular HGB Conc 34.5 g/dL (31.5-36.5); Mean Corpuscular Volume 83 fL (80-100); Mean Platelet Volume 9.3 fL (9.1-12.4); NEUTROPHILS ABSOLUTE AUTO 13.08 K/mm3 (1.96-9.15); NEUTROPHILS PERCENT AUTO 75 % (41-73); Platelet Count 455 K/mm3 (150-400); RDW Standard Deviation 39.6 fL (35.1-46.3); Red Blood Cell Count 5.52 M/mm3 (3.80-5.20); White Blood Cell Count 17.52 K/mm3 (4.00-11.30)
[2022-04-19 11:30] LABS: Albumin, Blood 4.8 g/dL (3.4-5.0); Bilirubin, Total 0.8 mg/dL (0.1-1.0); Bun/Creatinine Ratio 17.3 (12.0-20.0); Calcium, Blood 10.5 mg/dL (8.5-10.1); Creatinine, Blood 2.66 mg/dL (0.40-1.00); Globulin, Blood 4.9 g/dL (2.2-4.0); Potassium, Blood 3.9 mmol/L (3.5-5.5); Total Protein, Blood 9.7 g/dL (6.4-8.2)
[2022-04-19 14:00] LABS: Source, Urine Clean Catch
[2022-04-19 14:06] LABS: Appearance, Urine Clear (Clear); Bilirubin, Urine Neg (Neg); Blood, Urine 4+ (Neg); Color, Urine Yellow (P-Yellow); Glucose Qualitative, Urine Neg (Neg); Ketones, Urine 2+ (Neg); Leukocyte Esterase, Urine Neg (Neg); Nitrite, Urine Neg (Neg); Protein, Urine 2+ (Neg); Specific Gravity, Urine 1.015 (1.003-1.022); Urobilinogen, Urine NORM (Normal)
[2022-04-19 14:15] LABS: Granular Casts 0-2 /lpf (0)
[2022-04-19 14:16] LABS: Amorphous Light (0-Heavy); Bacteria Few /hpf; Red Blood Cells, Urine 0-2 /hpf (0-2); Squamous Epithelial Cells Rare /hpf (Few); White Blood Cells, Urine 0-2 /hpf (0-5); Yeast/Fungi Urine Rare /hpf
[2022-04-19 14:17] LABS: Renal Epithelial Rare /hpf (0-Rare)
--- NOTE | 2022-04-19 17:37 | NUR ---
ADMIT PT ADMITTED AND ORIENTED TO ROOM. MEDICATED FOR PAIN. NS RUNNING AT [address] PRATER ORDERS. CONSULT TO DR PRATER CALLED AND LABS ORDERED. PT RESTING IN BED, DAUGHTER AT BEDSIDE. COMFIRMED WITH IMAGING THAT HIDA SCAN WILL BE SOMETIME TOMORROW MOST LIKELY. CALL LIGHT IN REACH.
[2022-04-19 18:24] LABS: Uric Acid, Blood 8.2 mg/dL (2.6-6.0)
[2022-04-19 18:27] LABS: Albumin, Blood 4.2 g/dL (3.4-5.0); Albumin/Globulin Ratio 1.1 (0.8-1.8); Bilirubin, Total 0.5 mg/dL (0.1-1.0); Bun/Creatinine Ratio 17.8 (12.0-20.0); Calcium, Blood 9.4 mg/dL (8.5-10.1); Creatinine, Blood 2.13 mg/dL (0.40-1.00); Globulin, Blood 3.9 g/dL (2.2-4.0); Phosphorus, Blood 3.9 mg/dL (2.5-4.9); Potassium, Blood 3.3 mmol/L (3.5-5.5); Thyroid Stimulating Hormone 1.88 uIU/mL (0.360-4.800); Total Protein, Blood 8.1 g/dL (6.4-8.2)
[2022-04-19] MEDS ORDERED: AMITRIPTYLINE100 M2 PO (18:47)
[2022-04-19] MEDS ORDERED: TRAZ100 PO (18:47)
[2022-04-19] MEDS ORDERED: METO10 PO (18:48)
[2022-04-19] MEDS ORDERED: ONDA4ODT MM (18:49)
[2022-04-19] MEDS ORDERED: PROBIOTIC1 EA13 PO (18:49)
[2022-04-19] MEDS ORDERED: SIMETHICONE125 MG PO (18:51)
[2022-04-19] MEDS ORDERED: SYMBICORT 16010.2 GM INH (18:54)
[2022-04-19] MEDS ORDERED: IPRATROPIUM BRO15 ML (18:55)
[2022-04-19] MEDS ORDERED: FLUT1DIS8 INH (18:55)
[2022-04-19 21:36] LABS: Calcium, Blood 9.2 mg/dL (8.5-10.1); Creatinine, Blood 1.86 mg/dL (0.40-1.00); Potassium, Blood 3.4 mmol/L (3.5-5.5)
[2022-04-20] MEDS ORDERED: Aspir 8181 MG PO (01:50)
[2022-04-20] MEDS ORDERED: FERSU300 PO (01:50)
[2022-04-20 02:07] LABS: Bun/Creatinine Ratio 19.9 (12.0-20.0); Calcium, Blood 8.7 mg/dL (8.5-10.1); Creatinine, Blood 1.66 mg/dL (0.40-1.00); Potassium, Blood 3.2 mmol/L (3.5-5.5)
--- NOTE | 2022-04-20 04:27 | NUR ---
A/OX4; ANXIOUS AT TIMES; SCHEDULED ANTI- ANXIETY MED PER EMAR. COOPERATIVE. IND IN ROOM. GLUCOSE CHECKS D/T HYPOGLYCEMIA ON ARRIVAL; BG 98 AT 2100. C/O ABDOMINAL PAIN; PRN ANALGESICS PER EMAR; HELPFUL PER PATIENT. ONLY HAD SIPS OF WATER WITH MEDS THIS SHIFT; NPO AT 0300 FOR POSSIBLE HIDA SCAN TODAY. IVF INFUSING; ELECTROLYTE /FLUID REPLACEMENT PER ORDERS. SLEEP PROMOTED. CALL LIGHT IN REACH; ENCOURAGED TO MAKE NEEDS KNOWN.
[2022-04-20 06:24] LABS: BASOPHILS ABSOLUTE AUTO 0.06 K/mm3 (0.00-0.23); BASOPHILS PERCENT AUTO 1 % (0-2); EOSINOPHILS ABSOLUTE AUTO 0.04 K/mm3 (0.00-0.68); EOSINOPHILS PERCENT AUTO 0 % (0-6); Hematocrit 37.9 % (33.0-51.0); Hemoglobin 12.6 g/dL (11.5-16.0); IMMATURE GRAN ABSOLUTE AUTO 0.04 K/mm3 (0.00-0.10); IMMATURE GRAN PERCENT AUTO 0 % (0-1); LYMPHOCYTES ABSOLUTE AUTO 4.63 K/mm3 (0.84-5.20); LYMPHOCYTES PERCENT AUTO 42 % (21-46); MONOCYTES ABSOLUTE AUTO 1.02 K/mm3 (0.16-1.47); MONOCYTES PERCENT AUTO 9 % (4-13); Mean Corpuscular HGB 28.4 pg (26.0-34.0); Mean Corpuscular HGB Conc 33.2 g/dL (31.5-36.5); Mean Corpuscular Volume 86 fL (80-100); Mean Platelet Volume 9.3 fL (9.1-12.4); NEUTROPHILS ABSOLUTE AUTO 5.34 K/mm3 (1.96-9.15); NEUTROPHILS PERCENT AUTO 48 % (41-73); Platelet Count 344 K/mm3 (150-400); RDW Coefficient Variation 13.1 % (11.7-14.2); RDW Standard Deviation 40.9 fL (35.1-46.3); Red Blood Cell Count 4.43 M/mm3 (3.80-5.20); White Blood Cell Count 11.13 K/mm3 (4.00-11.30)
[2022-04-20 06:37] LABS: Albumin, Blood 3.5 g/dL (3.4-5.0); Bilirubin, Total 0.8 mg/dL (0.1-1.0); Bun/Creatinine Ratio 20.3 (12.0-20.0); Calcium, Blood 8.7 mg/dL (8.5-10.1); Creatinine, Blood 1.53 mg/dL (0.40-1.00); Globulin, Blood 3.6 g/dL (2.2-4.0); Magnesium, Blood 2.6 mg/dL (1.6-2.4); Phosphorus, Blood 2.9 mg/dL (2.5-4.9); Potassium, Blood 3.3 mmol/L (3.5-5.5); Total Protein, Blood 7.1 g/dL (6.4-8.2)
--- NOTE | 2022-04-20 16:22 | NUR ---
SHIFT SUMMARY PT MEDICATED FOR PAIN TWICE THIS SHIFT. PT NPO THE FIRST HALF OF THE SHIFT FOR HIDA SCAN. HIDA SCAN COMPLETED. PT NOW TOLERATING FLUID INTAKE. NS RUNNING AT 75ML/HR. PAIN DOWN TO A 3 THIS AFTERNOON. NO OTHER ACUTE CHANGES IN ASSESSMENT AT THIS TIME. VS REVIEWED. PT SHOWERED AFTER SCAN AND IS NOW RESTING IN BED. CALL LIGHT IN REACH. DENIES OTHER NEEDS AT THIS TIME.
--- NOTE | 2022-04-21 04:46 | NUR ---
A/OX4; ANXIOUS AT TIMES; SCHEDULED ANTI- ANXIETY MED PER EMAR. COOPERATIVE. IND IN ROOM. BG CHECKS D/T HYPOGLYCEMIA ON ARRIVAL; BG 112 AT 2029. C/O UPPER ABDOMINAL PAIN; PRN ANALGESICS PER EMAR; HELPFUL PER PATIENT. YESTERDAY'S HIDA SCAN SHOWED NO ACUTE ABNORMALITIES. IVF INFUSING. SLEEP PROMOTED. CALL LIGHT IN REACH; ENCOURAGED TO MAKE NEEDS KNOWN.
[2022-04-21 07:45] LABS: Albumin, Blood 2.8 g/dL (3.4-5.0); Anion Gap 5 mmol/L (6-16); Blood Urea Nitrogen 19 mg/dL (8-24); Bun/Creatinine Ratio 17.6 (12.0-20.0); CO2, Blood 25 mmol/L (21-32); Chloride, Blood 110 mmol/L (98-108); Creatinine, Blood 1.08 mg/dL (0.40-1.00); Glomerular Filtration Rate 58 (60-); Glucose, Blood 100 mg/dL (70-99); Magnesium, Blood 2.5 mg/dL (1.6-2.4); Phosphorus, Blood 2.4 mg/dL (2.5-4.9); Potassium, Blood 3.6 mmol/L (3.5-5.5); Sodium, Blood 140 mmol/L (136-145)
[2022-04-21] MEDS ORDERED: DOCU100 PO (15:18)
[2022-04-21] MEDS ORDERED: MIRALAX11910 PO (15:20)
[2022-04-21] MEDS ORDERED: PROMETHAZINE12.5 M3 PO (15:20)
[2022-04-21] MEDS ORDERED: SUCR1 PO (15:22)
--- NOTE | 2022-04-21 15:48 | NUR ---
SHIFT/DISCHARGE SUMMARY: PATIENT A&OX4. PLEASANT AND COOPERATIVE WITH CARE. USES CALL LIGHT APPROPRIATELY AND ABLE TO ADVOCATE FOR HER NEEDS. PATIENT DENIED CP/CHEST DISCOMFORT. PATIENT ON RA WITH SPO2 OF 97%. DENIED SOB. PATIENT HAS BEEN TOLERATING PO INTAKE. DENIED N/V THIS SHIFT. PATIENT HAS BEEN AMBULATING IN TO BATHROOM INDEPENDETLY WITHOUT NEEDING AMBULATORY DEVICES. VITAL SIGNS REVIEWED. IV TO R WRIST WAS DC'D. PATIENT DISCHARGE HOME. DISCHARGE INSTRUCTIONS PACKET GIVEN TO PATIENT. EDUCATE PATIENT REGARDING ADMITTING DIAGNOSIS, SIGNS AND SYMPTOMS, TREATMENT AND NEW PRESCRIBED MEDICATIONS. PATIENT STATED UNDERSTANDING AND NO FURTHER QUESTIONS. RX WAS [facility] ALL PATIENT PERSONAL BELONGINGS WERE SENT HOME WITH THE PATIENT. PATIENT WAS TRANSPORTED VIA WHEELCHAIR BY GREASE RENDERER STAFF ELLIOTT TO PATIENT'S SPOUSE VEHICLE.
== END 2022-04-21 15:58 | disposition home or self-care (01) ==
LOC: ER 10:37 → ERHOLD 13:20 → ER 13:20 → ERHOLD 15:57 → MEDS 15:57 → ERHOLD 15:58 → MEDS 16:43
PROVIDERS: Emergency Medicine; Internal Medicine Nephrology; ADMIT Family Medicine
DX: N17.9 Acute kidney failure, unspecified (principal); I12.9 Hypertensive chronic kidney disease with stage 1 through stage 4 chronic kidney disease, or unspecified chronic kidney disease; N18.30 Chronic kidney disease, stage 3 unspecified; K21.9 Gastro-esophageal reflux disease without esophagitis; E78.5 Hyperlipidemia, unspecified; J42 Unspecified chronic bronchitis; G25.81 Restless legs syndrome; E86.0 Dehydration; E87.1 Hypo-osmolality and hyponatremia; E87.6 Hypokalemia; R11.2 Nausea with vomiting, unspecified; D72.829 Elevated white blood cell count, unspecified; E87.20 Acidosis, unspecified; F12.90 Cannabis use, unspecified, uncomplicated; Z88.5 Allergy status to narcotic agent; Z88.8 Allergy status to other drugs, medicaments and biological substances; Z79.82 Long term (current) use of aspirin
CPT/HCPCS: 36415; 71045; 76705; 76770; 78226; 80048; 80053; 80069; 81001; 82947; 83690; 83735; 83930; 84100; 84443; 84484; 84550; 85018; 85025; 87086; 93005; 93010; 96361; 96375; 96376; A9270; A9537; C9113; G0378; J1170; J1644; J1790; J2405; J3010; J3480; J7030

== ENCOUNTER → 2024-09-05 | Outpatient (CLI) | payer MEDICARE ==
[~2024-09-05] MED LIST changes: +Aspir 8181 MG PO; +DOCU100 PO; +FERSU300 PO; +FLUT1DIS8 INH; +FLUTICASONE-SA1 EA10 INH; +MIRALAX11910 PO; +PROBIOTIC1 EA13 PO; +PROMETHAZINE12.5 M3 PO; +SIMETHICONE125 MG PO; +SUCR1 PO; +SYMBICORT 16010.2 GM INH; +TRELEGY ELLIPT1 EACH INH; +ZOLOFT25 MG PO
[2024-09-05 19:14] LABS: BASOPHILS ABSOLUTE AUTO 0.04 K/mm3 (0.00-0.23); BASOPHILS PERCENT AUTO 1 % (0-2); EOSINOPHILS ABSOLUTE AUTO 0.13 K/mm3 (0.00-0.68); EOSINOPHILS PERCENT AUTO 2 % (0-6); Hematocrit 38.6 % (33.0-51.0); Hemoglobin 12.8 g/dL (11.5-16.0); IMMATURE GRAN ABSOLUTE AUTO 0.01 K/mm3 (0.00-0.10); IMMATURE GRAN PERCENT AUTO 0 % (0-1); LYMPHOCYTES ABSOLUTE AUTO 2.78 K/mm3 (0.84-5.20); LYMPHOCYTES PERCENT AUTO 34 % (21-46); MONOCYTES ABSOLUTE AUTO 0.41 K/mm3 (0.16-1.47); MONOCYTES PERCENT AUTO 5 % (4-13); Mean Corpuscular HGB 29.6 pg (26.0-34.0); Mean Corpuscular HGB Conc 33.2 g/dL (31.5-36.5); Mean Corpuscular Volume 89 fL (80-100); Mean Platelet Volume 10.4 fL (9.1-12.4); NEUTROPHILS PERCENT AUTO 58 % (41-73); Platelet Count 274 K/mm3 (150-400); RDW Coefficient Variation 14.1 % (11.7-14.2); Red Blood Cell Count 4.33 M/mm3 (3.80-5.20); White Blood Cell Count 8.07 K/mm3 (4.00-11.30)
== END | disposition home or self-care (01) ==
LOC: LAB 16:44 → LAB SHORT 16:44
PROVIDERS: Internal Medicine Hematology & Oncology
DX: D47.2 Monoclonal gammopathy (principal)
CPT/HCPCS: 85025

== ENCOUNTER 2024-09-14 11:24 | Observation (INO) | payer MEDICARE, OTHER ==
[~2024-09-14] VITALS: Ht 162.6 cm; Wt 65.4 kg
[2024-09-14] MEDS ORDERED: Ondansetron HCl 2 MG / ML 2ML Vial IV ONE (12:10)
[2024-09-14 13:13] LABS: BASOPHILS ABSOLUTE AUTO 0.05 K/mm3 (0.00-0.23); BASOPHILS PERCENT AUTO 0 % (0-2); EOSINOPHILS ABSOLUTE AUTO 0.02 K/mm3 (0.00-0.68); EOSINOPHILS PERCENT AUTO 0 % (0-6); Hematocrit 44.4 % (33.0-51.0); Hemoglobin 15.7 g/dL (11.5-16.0); IMMATURE GRAN ABSOLUTE AUTO 0.12 K/mm3 (0.00-0.10); IMMATURE GRAN PERCENT AUTO 1 % (0-1); LYMPHOCYTES ABSOLUTE AUTO 1.97 K/mm3 (0.84-5.20); LYMPHOCYTES PERCENT AUTO 14 % (21-46); MONOCYTES ABSOLUTE AUTO 0.63 K/mm3 (0.16-1.47); MONOCYTES PERCENT AUTO 4 % (4-13); Mean Corpuscular HGB 29.5 pg (26.0-34.0); Mean Corpuscular HGB Conc 35.4 g/dL (31.5-36.5); Mean Corpuscular Volume 84 fL (80-100); NEUTROPHILS ABSOLUTE AUTO 11.51 K/mm3 (1.96-9.15); NEUTROPHILS PERCENT AUTO 81 % (41-73); RDW Coefficient Variation 13.2 % (11.7-14.2); RDW Standard Deviation 40.4 fL (35.1-46.3); Red Blood Cell Count 5.32 M/mm3 (3.80-5.20)
[2024-09-14 13:17] LABS: Albumin, Blood 5.1 g/dL (3.4-5.0); Albumin/Globulin Ratio 1.2 (0.8-1.8); Bilirubin, Total 0.5 mg/dL (0.1-1.0); Bun/Creatinine Ratio 13.2 (12.0-20.0); Calcium, Blood 10.4 mg/dL (8.5-10.1); Creatinine, Blood 2.2 mg/dL (0.40-1.00); Globulin, Blood 4.1 g/dL (2.2-4.0); Potassium, Blood 3.5 mmol/L (3.5-5.5); Total Protein, Blood 9.2 g/dL (6.4-8.2)
[2024-09-14 13:30] LABS: Influenza A, PCR NEGATIVE (NEGATIVE); Influenza B, PCR NEGATIVE (NEGATIVE); Resp Syncytial Virus, PCR NEGATIVE (NEGATIVE); SARS-Cov-2 (COVID-19) PCR, MMC NEGATIVE (NEGATIVE)
[2024-09-14] MEDS ORDERED: Ondansetron HCl 2 MG / ML 2ML Vial ONE (15:17)
[2024-09-14] MEDS ORDERED: Morphine Sulfate 4 MG/1 ML Injection ONE (15:17)
[2024-09-14] MEDS ORDERED: Morphine Sulfate 4 MG/1 ML Injection IV ONE (15:30)
[2024-09-14 15:35] LABS: Platelet Count 392 K/mm3 (150-400)
[2024-09-14 15:36] LABS: Mean Platelet Volume 9.5 fL (9.1-12.4)
[2024-09-14] MEDS ORDERED: CefTRIAXone Sodium 2,000 MG in NS 100 ML IV ONE (15:40)
[2024-09-14] MEDS ORDERED: NS 1,000 ML IV SCH ×2 (15:40→15:55)
[2024-09-14] MEDS ORDERED: HYDROmorphone HCl/Pf 1MG SYR IV ONE ×2 (16:00)
[2024-09-14 16:05] LABS: Magnesium, Blood 2.5 mg/dL (1.6-2.4); Phosphorus, Blood 3.6 mg/dL (2.5-4.9)
[2024-09-14 16:17] LABS: International Normalized Ratio 0.98; Prothrombin Time Results 10.5 Sec (9.7-11.5)
[2024-09-14 17:05] LABS: Source, Urine Clean Catch
[2024-09-14 17:10] LABS: Appearance, Urine Clear (Clear); Bilirubin, Urine Neg (Neg); Blood, Urine 4+ (Neg); Color, Urine Yellow (P-Yellow); Glucose Qualitative, Urine Neg (Neg); Ketones, Urine Neg (Neg); Leukocyte Esterase, Urine Neg (Neg); Nitrite, Urine Neg (Neg); Protein, Urine 2+ (Neg); Specific Gravity, Urine 1.015 (1.003-1.022); Urobilinogen, Urine NORM (Normal)
[2024-09-14 17:17] LABS: Bacteria Few /hpf; Squamous Epithelial Cells Few /hpf (Few); White Blood Cells, Urine 0-2 /hpf (0-5)
[2024-09-14] MEDS ORDERED: HYDROmorphone HCl/Pf 1MG SYR IV PRN (18:20)
[2024-09-14] MEDS ORDERED: Metoclopramide HCl 5MG / ML 2ML Vial IV PRN (18:20)
[2024-09-14] MEDS ORDERED: Lactated Ringer's 1,000 ML IV SCH (18:20)
[2024-09-14] MEDS ORDERED: Ondansetron HCl 2 MG / ML 2ML Vial IV PRN (18:20)
[2024-09-14] MEDS ORDERED: Tiotropium Bromide 2.5 MCG/ACT MIST INHAL (10 ACT/4 GM) INH SCH (18:25)
[2024-09-14] MEDS ORDERED: Albuterol 2.5 MG/3 ML VIAL INH PRN (18:25)
[2024-09-14 19:35] LABS: U Amphetamine Screen Not Detected; U Barbituate Screen Not Detected; U Benzodiazapine Screen Not Detected; U Buprenorphine Screen Not Detected; U Cannabinoids Screen DETECTED; U Cocaine Screen Not Detected; U Methadone Screen Not Detected; U Methamphetamine Screen Not Detected; U Opiates Screen DETECTED; U Oxycodone Screen Not Detected; U Phencyclidine Screen Not Detected
[2024-09-14] MEDS ORDERED: Heparin Sodium,Porcine 5,000 UNIT/0.5 ML SDV SC SCH (21:00)
[2024-09-14] MEDS ORDERED: rOPINIRole HCl 0.25 MG Tab PO SCH (21:00)
[2024-09-14 21:34] VITALS: BP 169/94
[2024-09-14] MEDS ORDERED: Mometasone/Formoterol MDI 100/5 mcg 13 GM INH SCH (21:40)
[2024-09-15] MEDS ORDERED: HYDR1TAB94 PO (00:31)
[2024-09-15] MEDS ORDERED: SYMBICORT 16010.2 GM (00:33)
[2024-09-15] MEDS ORDERED: ALBU90OI6 INH (00:34)
[2024-09-15 04:19] VITALS: BP 113/84
[2024-09-15 04:47] LABS: BASOPHILS ABSOLUTE AUTO 0.04 K/mm3 (0.00-0.23); BASOPHILS PERCENT AUTO 0 % (0-2); EOSINOPHILS ABSOLUTE AUTO 0.02 K/mm3 (0.00-0.68); EOSINOPHILS PERCENT AUTO 0 % (0-6); Hematocrit 33.3 % (33.0-51.0); Hemoglobin 11.4 g/dL (11.5-16.0); IMMATURE GRAN ABSOLUTE AUTO 0.04 K/mm3 (0.00-0.10); IMMATURE GRAN PERCENT AUTO 0 % (0-1); LYMPHOCYTES PERCENT AUTO 29 % (21-46); MONOCYTES ABSOLUTE AUTO 0.76 K/mm3 (0.16-1.47); MONOCYTES PERCENT AUTO 7 % (4-13); Mean Corpuscular HGB 29.5 pg (26.0-34.0); Mean Corpuscular HGB Conc 34.2 g/dL (31.5-36.5); Mean Corpuscular Volume 86 fL (80-100); Mean Platelet Volume 9.7 fL (9.1-12.4); NEUTROPHILS ABSOLUTE AUTO 6.87 K/mm3 (1.96-9.15); NEUTROPHILS PERCENT AUTO 63 % (41-73); Platelet Count 270 K/mm3 (150-400); RDW Coefficient Variation 13.5 % (11.7-14.2); RDW Standard Deviation 42.6 fL (35.1-46.3); Red Blood Cell Count 3.86 M/mm3 (3.80-5.20); White Blood Cell Count 10.83 K/mm3 (4.00-11.30)
[2024-09-15 05:05] LABS: Magnesium, Blood 2.3 mg/dL (1.6-2.4)
[2024-09-15 05:30] LABS: Albumin, Blood 3.3 g/dL (3.4-5.0); Albumin/Globulin Ratio 1.2 (0.8-1.8); Bilirubin, Total 0.4 mg/dL (0.1-1.0); Bun/Creatinine Ratio 16.3 (12.0-20.0); Creatinine, Blood 1.23 mg/dL (0.40-1.00); Globulin, Blood 2.8 g/dL (2.2-4.0); Potassium, Blood 3.2 mmol/L (3.5-5.5)
[2024-09-15 05:31] LABS: Calcium, Blood 8.3 mg/dL (8.5-10.1); Total Protein, Blood 6.1 g/dL (6.4-8.2)
--- NOTE | 2024-09-15 05:55 | NUR ---
SHIFT SUMMARY NOC PT A/O X 4. PLEASANT AND COOPERATIVE WITH CARE. ADMIT FOR ACUTE PANCREATITS. PT HAS HAD N/V FOR PAST 3 DAYS WITH POOR APPETITIE. PT REPORTS LAST BM 09/10/24. PT IS NPO AND HAS LR INFUSING @ 150 ML/HR. LACTIC ACID WAS 2.2 AND INCREASED TO 2.5 BEFORE ARRIVING ON UNIT. HOSPITALIST NOTIFIED AND NO REPEAT LA TO BE ORDRERED AT THIS TIME. PT LOWER ABD PAIN BEING MANAGED PER EMAR. PT REPORTS HAVING SHANNAN AND REQUIRED 3L/NC FOR SLEEP DUE TO BEING UNABLE TO TOLERATE CPAP. PT SPO2 >95% WITH SUPPLEMENTAL O2. PT HAS NOT HAD C/O OF N/V SINCE ARRIVING TO UNIT. PT CURRENTLY RESTING WITH BED IN LOWEST POSITION, AND CALL LIGHT WITHIN REACH.
[2024-09-15] MEDS ORDERED: Pantoprazole Sodium 20 MG Tab PO SCH (06:00)
[2024-09-15] MEDS ORDERED: Pantoprazole Sodium 40 MG Injection IV SCH (06:00)
[2024-09-15 08:02] VITALS: BP 108/60
[2024-09-15] MEDS ORDERED: Enoxaparin 40 MG/0.4 ML SYR SC SCH (09:00)
[2024-09-15] MEDS ORDERED: Thiamine HCl 100 MG in NS 50 ML IV SCH (10:30)
--- NOTE | 2024-09-15 16:17 | NUR ---
NOTE: PATIENT WAS ON CL DIET FOR LUNCH, TOLERATING WELL. PATIENT DENIES N/V AND ABDOMINAL DISCOMFORT AFTER HAVING HER CL LUNCH. NOTIFIED DR. ROGERS, RECEIVED ORDER TO ADVANCE DIET TO FL AT DINNER.
--- NOTE | 2024-09-15 17:25 | NUR ---
SHIFT SUMMARY: PATIENT A/OX4, PLEASANT AND COOPERATIVE c CARE. PATIENT DENIES CP/PRESSURE, SOB, N/V AND DIZZINESS. PATIENT MEDICATED X1 FOR R ABDOMINAL PAIN PER EMAR c GOOD EFFECT. PATIENT TOLERATED CL DIET WELL AT LUNCH, DIET ADVANCED TO FL FOR DINNER. PATIENT CONTINENT OF BLADDER, NO BM AND AMBULATES TO BATHROOM INDEPENDENTLY T/O SHIFT. PATIENT RECEIVED SCHEDULED MEDS PER EMAR. VITAL SIGNS REVIEWED. PIV TO L FOREARM INFUSING LR AT 150 MLS/HR. BED IN LOWEST POSITIONED. CALL LIGHT IN REACH.
[2024-09-15 20:13] VITALS: BP 140/83
[2024-09-15] MEDS ORDERED: Simethicone 80 MG Chew PO PRN (20:45)
[2024-09-15] MEDS ORDERED: TraZODone HCl 100 MG Tab PO SCH (21:00)
[2024-09-15] MEDS ORDERED: Montelukast Sodium 10 MG Tab PO SCH (21:00)
--- NOTE | 2024-09-16 05:26 | NUR ---
SHIFT SUMMARY NOC PT A/O X 4. PLEASANT AND COOPERATIVE WITH CARE. VSS. NO ACUTE CHANGES TO REPORT. NO C/O OF N/V AND PAIN TOLERABLE 09/20 AND NO PAIN RX GIVEN. D/C IVF. PT STILL USING 3L/NC FOR SLEEP AND SPO2 >95% ON BIOX. PT TOLERATING FULL LIQUID DIET. PT POSSIBLE DISCHARGE TODAY AND WILL GO HOME WITH PO PAIN RX. PT CURRENTLY RESTING WITH BED IN LOWEST POSITION, AND CALL LIGHT WITHIN REACH.
[2024-09-16 05:27] VITALS: BP 101/56
[2024-09-16 07:24] VITALS: BP 102/71
--- NOTE | 2024-09-16 13:21 | NUR ---
SHIFT/DISCHARGE SUMMARY: PATIENT A/OX4, CALM, PLEASANT AND COOPERATIVE c CARE. PATIENT DENIES ABDOMINAL PAIN, CP/PRESSURE, SOB, N/V AND DIZZINESS. PATIENT TOLERATED FL DIET. PATIENT RECEIVED SCHEDULED MEDS PER EMAR. VITAL SIGNS REVIEWED. CALL LIGHT IN REACH. PIV DC'D. PATIENT REPORTS NOC RN, LESLEY WAS PUSHING THE SC INJ HARD AND FAST TO HER ABDOMEN, "IT WAS HURTING AND BLEEDS." BRUISING NOTED TO ABDOMEN. NOTIFIED CHARGED RNGABBI PATIENT COMPLAINTS. PATIENT DISCHARGE HOME. DISCHARGE INSTRUCTIONS PACKET GIVEN TO PATIENT. PATIENT EDUCATED ON ADMITTING DX'S OF ACUTE PANCREATITIS, S/S, TX, TO F/U c PCP AND TO RESUME HOME MEDS. PATIENT VERBALIZED UNDERSTANDING AND NO FURTHER QUESTIONS. PATIENT HAS HAD NO NEW RX ORDER. ALL PERSONAL BELONGINGS WERE SENT HOME c THE PATIENT. PATIENT LEFT THE ROOM AT 1301, TRANSPORTED VIA W/C BY GLASS BEAD MAKER TO PATIENT ENTRANCE.
== END 2024-09-16 13:01 | disposition home or self-care (01) ==
LOC: ER 11:24 → MEDS 11:25 → ERHOLD 11:25 → MEDS 21:31
PROVIDERS: Nurse Practitioner Acute Care; Physician Assistant; Student in an Organized Health Care Education/Training Program; ADMIT Internal Medicine
DX: K85.90 Acute pancreatitis without necrosis or infection, unspecified (principal); K86.1 Other chronic pancreatitis; I10 Essential (primary) hypertension; F32.A Depression, unspecified; G25.81 Restless legs syndrome; K21.9 Gastro-esophageal reflux disease without esophagitis; J44.9 Chronic obstructive pulmonary disease, unspecified; F12.99 Cannabis use, unspecified with unspecified cannabis-induced disorder; M81.0 Age-related osteoporosis without current pathological fracture; Z88.5 Allergy status to narcotic agent; Z88.8 Allergy status to other drugs, medicaments and biological substances; Z79.899 Other long term (current) drug therapy; I12.9 Hypertensive chronic kidney disease with stage 1 through stage 4 chronic kidney disease, or unspecified chronic kidney disease; N18.30 Chronic kidney disease, stage 3 unspecified
CPT/HCPCS: 0241U; 36415; 51798; 74177; 80053; 81001; 82550; 83605; 83690; 83735; 84100; 84484; 85025; 85610; 87040; 93005; 93010; 94640; 94664; 94762; 96365-59; 96375; 96376; 99285-25; A9270; G0378; J0696; J1171; J1644; J2270; J2405; J2470; J2765; J3411; J7030; J7120; Q9967

== ENCOUNTER 2024-10-04 16:42 | Emergency (ER) | payer MEDICARE, OTHER ==
[~2024-10-04] VITALS: Ht 162.6 cm; Wt 67.6 kg
[~2024-10-04 16:42] MED LIST changes: +ALBU90OI6 INH; +SYMBICORT 16010.2 GM
[2024-10-04] MEDS ORDERED: Ondansetron HCl 2 MG / ML 2ML Vial IV ONE ×2 (16:55→19:05)
[2024-10-04 17:26] LABS: BASOPHILS ABSOLUTE AUTO 0.02 K/mm3 (0.00-0.23); BASOPHILS PERCENT AUTO 0 % (0-2); EOSINOPHILS PERCENT AUTO 0 % (0-6); Hematocrit 40.3 % (33.0-51.0); Hemoglobin 13.2 g/dL (11.5-16.0); IMMATURE GRAN ABSOLUTE AUTO 0.03 K/mm3 (0.00-0.10); IMMATURE GRAN PERCENT AUTO 0 % (0-1); LYMPHOCYTES ABSOLUTE AUTO 1.82 K/mm3 (0.84-5.20); LYMPHOCYTES PERCENT AUTO 13 % (21-46); MONOCYTES ABSOLUTE AUTO 0.53 K/mm3 (0.16-1.47); MONOCYTES PERCENT AUTO 4 % (4-13); Mean Corpuscular HGB 28.5 pg (26.0-34.0); Mean Corpuscular HGB Conc 32.8 g/dL (31.5-36.5); Mean Corpuscular Volume 87 fL (80-100); Mean Platelet Volume 9.2 fL (9.1-12.4); NEUTROPHILS ABSOLUTE AUTO 11.74 K/mm3 (1.96-9.15); NEUTROPHILS PERCENT AUTO 83 % (41-73); Platelet Count 312 K/mm3 (150-400); RDW Coefficient Variation 13.5 % (11.7-14.2); RDW Standard Deviation 43.1 fL (35.1-46.3); Red Blood Cell Count 4.63 M/mm3 (3.80-5.20); White Blood Cell Count 14.14 K/mm3 (4.00-11.30)
[2024-10-04 18:25] LABS: Alanine Aminotransfer (ALT/SGP 19 U/L (12-78); Albumin, Blood 4.5 g/dL (3.4-5.0); Albumin/Globulin Ratio 1.3 (0.8-1.8); Alk Phos 58 U/L (50-136); Anion Gap 12 mmol/L (3-11); Aspartate Aminotrans (AST/SGOT 13 U/L (12-37); Bilirubin, Total 0.5 mg/dL (0.1-1.0); Blood Urea Nitrogen 11 mg/dL (8-24); Bun/Creatinine Ratio 9.4 (12.0-20.0); CO2, Blood 23 mmol/L (21-32); Calcium, Blood 9.6 mg/dL (8.5-10.1); Chloride, Blood 105 mmol/L (98-108); Creatinine, Blood 1.17 mg/dL (0.40-1.00); Globulin, Blood 3.5 g/dL (2.2-4.0); Glomerular Filtration Rate 51 (60-); Glucose, Blood 144 mg/dL (70-99); Potassium, Blood 3.9 mmol/L (3.5-5.5); Sodium, Blood 136 mmol/L (136-145); Triglycerides 84 mg/dL (30-160)
[2024-10-04] MEDS ORDERED: Ketorolac Tromethamine 30mg Vial IV ONE (20:05)
[2024-10-04] MEDS ORDERED: HYDROmorphone HCl/Pf 1MG SYR IV ONE (20:05)
[2024-10-04] MEDS ORDERED: Metoclopramide HCl 5MG / ML 2ML Vial IV ONE (20:05)
[2024-10-04 21:15] VITALS: BP 114/71
[2024-10-04] MEDS ORDERED: RX Prepack 6 Tabs Oxycodone 5mg UD ONE (21:30)
[2024-10-04] MEDS ORDERED: RX Prepack 2 Tabs Ondansetron ODT 4MG UD ONE (21:30)
[2024-10-04] MEDS ORDERED: METO10 PO (21:31)
[2024-10-04] MEDS ORDERED: IBUP600 PO (21:31)
[2024-10-04] MEDS ORDERED: OXAYDO5 M1 PO (21:31)
[2024-10-04] MEDS ORDERED: ONDA4ODT MM (21:31)
== END 2024-10-04 21:42 | disposition home or self-care (01) ==
LOC: ER 16:42
PROVIDERS: Student in an Organized Health Care Education/Training Program
DX: K85.90 Acute pancreatitis without necrosis or infection, unspecified (principal); I11.0 Hypertensive heart disease with heart failure; I50.9 Heart failure, unspecified; K21.9 Gastro-esophageal reflux disease without esophagitis; E78.5 Hyperlipidemia, unspecified; Z88.0 Allergy status to penicillin; Z88.5 Allergy status to narcotic agent; Z88.9 Allergy status to unspecified drugs, medicaments and biological substances; Z79.891 Long term (current) use of opiate analgesic; Z79.899 Other long term (current) drug therapy; Z79.890 Hormone replacement therapy; Z79.51 Long term (current) use of inhaled steroids; Z79.52 Long term (current) use of systemic steroids; Z79.1 Long term (current) use of non-steroidal anti-inflammatories (NSAID); Z79.83 Long term (current) use of bisphosphonates; Z79.84 Long term (current) use of oral hypoglycemic drugs
CPT/HCPCS: 76705; 80053; 83605; 83690; 84478; 85025; 96374; 96375; 99284-25; A9270; J1171; J1885; J2405; J2765

== ENCOUNTER 2024-10-06 18:25 | Emergency (ER) | payer MEDICARE, OTHER ==
[~2024-10-06] VITALS: Ht 162.6 cm; Wt 68.0 kg
[~2024-10-06 18:25] MED LIST changes: +IBUP600 PO; +OXAYDO5 M1 PO
[2024-10-06 19:08] LABS: BASOPHILS ABSOLUTE AUTO 0.04 K/mm3 (0.00-0.23); BASOPHILS PERCENT AUTO 0 % (0-2); EOSINOPHILS ABSOLUTE AUTO 0.13 K/mm3 (0.00-0.68); EOSINOPHILS PERCENT AUTO 1 % (0-6); Hematocrit 44.5 % (33.0-51.0); Hemoglobin 15.3 g/dL (11.5-16.0); IMMATURE GRAN ABSOLUTE AUTO 0.04 K/mm3 (0.00-0.10); IMMATURE GRAN PERCENT AUTO 0 % (0-1); LYMPHOCYTES ABSOLUTE AUTO 3.65 K/mm3 (0.84-5.20); LYMPHOCYTES PERCENT AUTO 24 % (21-46); MONOCYTES ABSOLUTE AUTO 0.91 K/mm3 (0.16-1.47); MONOCYTES PERCENT AUTO 6 % (4-13); Mean Corpuscular HGB 29.4 pg (26.0-34.0); Mean Corpuscular HGB Conc 34.4 g/dL (31.5-36.5); Mean Corpuscular Volume 85 fL (80-100); Mean Platelet Volume 9.4 fL (9.1-12.4); NEUTROPHILS ABSOLUTE AUTO 10.28 K/mm3 (1.96-9.15); NEUTROPHILS PERCENT AUTO 68 % (41-73); Platelet Count 369 K/mm3 (150-400); RDW Standard Deviation 40.4 fL (35.1-46.3); Red Blood Cell Count 5.21 M/mm3 (3.80-5.20); White Blood Cell Count 15.05 K/mm3 (4.00-11.30)
[2024-10-06 19:31] LABS: Albumin, Blood 4.9 g/dL (3.4-5.0); Albumin/Globulin Ratio 1.2 (0.8-1.8); Bilirubin, Total 0.5 mg/dL (0.1-1.0); Bun/Creatinine Ratio 10.9 (12.0-20.0); Calcium, Blood 10.3 mg/dL (8.5-10.1); Creatinine, Blood 1.84 mg/dL (0.40-1.00); Globulin, Blood 4.1 g/dL (2.2-4.0); Potassium, Blood 3.5 mmol/L (3.5-5.5)
[2024-10-06] MEDS ORDERED: HYDROmorphone HCl/Pf 1MG SYR IV ONE (20:50)
[2024-10-06] MEDS ORDERED: Lactated Ringer's 1,000 ML IV ONE (20:50)
[2024-10-06] MEDS ORDERED: Ondansetron HCl 2 MG / ML 2ML Vial IV ONE (20:50)
[2024-10-06] MEDS ORDERED: Haloperidol Lactate Inj. 5 MG/ML Injection IV ONE (22:35)
[2024-10-06] MEDS ORDERED: METO5A PO (23:52)
[2024-10-06] MEDS ORDERED: OXYC10TA19 PO (23:52)
[2024-10-06] MEDS ORDERED: CAPSAICIN60 G1 TOP (23:52)
[2024-10-07] VITALS: BP 164/94
== END 2024-10-07 | disposition home or self-care (01) ==
LOC: ER 18:25
PROVIDERS: Student in an Organized Health Care Education/Training Program
DX: K85.90 Acute pancreatitis without necrosis or infection, unspecified (principal); K86.1 Other chronic pancreatitis; E86.0 Dehydration; K21.9 Gastro-esophageal reflux disease without esophagitis; E78.5 Hyperlipidemia, unspecified; G47.00 Insomnia, unspecified; Z79.51 Long term (current) use of inhaled steroids; Z79.82 Long term (current) use of aspirin; Z79.899 Other long term (current) drug therapy; Z88.5 Allergy status to narcotic agent; Z88.8 Allergy status to other drugs, medicaments and biological substances
CPT/HCPCS: 80053; 83690; 85025; 96361; 96374; 96375; 99284-25; J1171; J1630; J2405; J7120